=== PATIENT | male | born 1945 | race Caucasian/White ===

== ENCOUNTER 2017-05-18 21:11 | Outpatient (CLI) | payer MEDICARE, OTHER | END 2017-05-18 21:12 | disposition EMS.NT | LOC: EMS 21:11 | PROVIDERS: ATTEND Surgery | DX: R06.02 Shortness of breath (principal) ==

== ENCOUNTER 2019-12-05 12:48 | Outpatient (CLI) | payer MEDICARE, OTHER | END 2019-12-05 12:49 | disposition home or self-care (01) | LOC: RT 12:48 | PROVIDERS: ATTEND Internal Medicine | DX: R06.00 Dyspnea, unspecified (principal); J44.9 Chronic obstructive pulmonary disease, unspecified | CPT/HCPCS: 94060 ==